=== PATIENT | male | born 1930 | race Caucasian/White ===

== ENCOUNTER 2016-10-27 10:56 | Emergency (ER) | payer MEDICARE ==
[~2016-10-27 10:56] MED LIST: ASPI325T11 PO; FLUT1DIS3 IH; ISOS30TA4 PO; LISI10TA2 PO; METO25TA4 PO; NIAC500T9 PO; NITR0.4T SL; SIMV80TA3 PO
[2016-10-27 11:06] VITALS: BP 155/81
--- NOTE | 2016-10-27 12:05 | PHYS DOC ---
Adult General Chief Complaint Chief Complaint: MECHANICAL FALL HPI HPI Patient is a 86 year old male presents to the emergency department stating that he fell at home day morning when he was getting up out of bed. Patient states that he had tripped over a shoe in the bedroom and hit the back of the board. He states that he is having pain in his right posterior rib area. He does have bruising noted. He denies any shortness of air difficulty breathing. He denies taken anything for the pain and discomfort. Patient does state he takes aspirin on a daily basis. Patient denies hitting his head denies any back injuries or pain or discomfort other than the posterior ribs. Review of Systems Review of Systems Constitutional: Denies fever or chills [] Eyes: Denies change in visual acuity, redness, or eye pain [] HENT: Denies nasal congestion or sore throat [] Respiratory: Denies cough or shortness of breath [] Cardiovascular: No additional information not addressed in HPI [] GI: Denies abdominal pain, nausea, vomiting, bloody stools or diarrhea [] : Denies dysuria or hematuria [] Musculoskeletal: Denies back pain or joint pain [] Integument: Denies rash or skin lesions [] Neurologic: Denies headache, focal weakness or sensory changes [] Endocrine: Denies polyuria or polydipsia [] Allergies Allergies Allergies Coded Allergies Type Severity Reaction Last Updated Verified No Known Drug Allergies 02/21/15 No Physical Exam Physical Exam Constitutional: Well developed, well nourished, no acute distress, non-toxic appearance. [] HENT: Normocephalic, atraumatic, bilateral external ears normal, oropharynx moist, no oral exudates, nose normal. [] Eyes: PERRLA, EOMI, conjunctiva normal, no discharge. [] Neck: Normal range of motion, no tenderness, supple, no stridor. [] Cardiovascular:Heart rate regular rhythm, no murmur [] Lungs & Thorax: Bilateral breath sounds clear to auscultation patient noted to have bruising along the right lower posterior thoracic area. No crepitus no deformities and no step-offs noted. Skin: Warm, dry, no erythema, no rash. [] Back: No tenderness Extremities: No tenderness, no cyanosis, no clubbing, ROM intact, no edema. [] Neurologic: Alert and oriented X 3, normal motor function, normal sensory function, no focal deficits noted. [] Psychologic: Affect normal, judgement normal, mood normal. [] Current Patient Data Vital Signs Vital Signs Date Time Temp Pulse Resp B/P (MAP) Pulse Ox O2 Delivery O2 Flow Rate FiO2 10/27/16 11:06 97.6 92 20 155/81 (105) 96 Room Air 97.6 EKG EKG [] Radiology/Procedures Radiology/Procedures [[facility] [address] [place] [address] IMAGING REPORT Signed PATIENT: SOM SWANSON ACCOUNT: [id number] : 1930 LOCATION: ER AGE: 86 SEX: M EXAM STATUS: REG ER ORD. PHYSICIAN: ALIYAH NIELSEN APRN REASON: right rib pain after fall - C PROCEDURE: RIBS RIGHT AND PA CHEST EXAM: Frontal chest with 4 view right rib series. HISTORY: Right rib pain after a fall. COMPARISON: 02/21/2015. FINDINGS: There are changes of coronary artery bypass grafting. Surgical clips are noted at the right base of the neck. There are atherosclerotic calcifications of the aorta. Hyperinflation is consistent with chronic obstructive pulmonary disease. There are no confluent infiltrates. There is no pneumothorax or pleural effusion. There are chronic fractures of the right 3rd through 5th ribs and left 5th rib. There are no acute displaced rib fractures. IMPRESSION: 1. No acute displaced rib fractures. 2. Chronic obstructive pulmonary disease. DICTATED and SIGNED BY: YISEL DILLARD MD DATE: 10/27/16 1213 CC: ALIYAH NIELSEN APRN; NON,STAFF; RASHI TRIANA MD ~ Course & Med Decision Making Course & Med Decision Making Pertinent Labs and Imaging studies reviewed. (See chart for details) X-rays were negative for any acute fractures noted. Radiology did state they saw old fractures on the right as well. Patient will be provided with hydrocodone at home to take for severe pain and discomfort. He'll be provided with an incentive spirometer take deep breaths to prevent pneumonia. Patient was also encouraged take ibuprofen as needed for pain and between the hydrocodone dosage. Patient was also instructed that hydrocodone will cause drowsiness and may also increase the chances of fall. Patient agrees with discharge instructions treatment regimens and follow-up recommendations. Signs symptoms to return back to emergency department as been provided. Also recommended ice packs to the areas of discomfort on 20 minutes off 20 minutes several times a day. Patient agrees with discharge instructions treatment regimens and follow-up recommendations. [] Dragon Disclaimer Dragon Disclaimer This electronic medical record was generated, in whole or in part, using a voice recognition dictation system. Departure Departure Impression: Primary Impression: Contusion of rib on right side Disposition: HOME, SELF-CARE Condition: STABLE Referrals: RASHI TRIANA MD (PCP) Patient Instructions: Rib Contusion Additional Instructions: Activity as tolerated. Ice packs on 20 minutes off 20 minutes several times a day. Use the incentive spirometer to take deep breaths approximately 6-7 breaths every hour. Ibuprofen for pain and discomfort in between the hydrocodone. Make sure you when taking this medication to prevent stomach upset. Hydrocodone will cause drowsiness do not take any be alert and oriented. May also increase her chances of falling. Follow-up with your primary care physician in the next week. Return back to emergency department sign symptoms of become worse. Scripts Hydrocodone/Apap 5-325 (NORCO 5-325 TABLET) 1 Each Tablet 1 TAB PO PRN Q6HRS Y for PAIN, #20 TAB 0 Refills Prov: ALIYAH NIELSEN APRN 10/27/16 ALIYAH NIELSEN APRN Oct 27, 2016 12:05
--- NOTE | 2016-10-27 12:19 | RAD ---
EXAM: Frontal chest with 4 view right rib series. HISTORY: Right rib pain after a fall. COMPARISON: 02/21/2015. FINDINGS: There are changes of coronary artery bypass grafting. Surgical clips are noted at the right base of the neck. There are atherosclerotic calcifications of the aorta. Hyperinflation is consistent with chronic obstructive pulmonary disease. There are no confluent infiltrates. There is no pneumothorax or pleural effusion. There are chronic fractures of the right 3rd through 5th ribs and left 5th rib. There are no acute displaced rib fractures. IMPRESSION: 1. No acute displaced rib fractures. 2. Chronic obstructive pulmonary disease.
[2016-10-27] MEDS ORDERED: HYDR-971 PO (12:39)
== END 2016-10-27 12:55 | disposition home or self-care (01) ==
LOC: ER 10:56
DX: S20.211A Contusion of right front wall of thorax, initial encounter (principal); W01.198A Fall on same level from slipping, tripping and stumbling with subsequent striking against other object, initial encounter; Y93.89 Activity, other specified; Y99.8 Other external cause status; Y92.89 Other specified places as the place of occurrence of the external cause
CPT/HCPCS: 71101; 99284-25